=== PATIENT | male | born 1955 | race Caucasian/White ===

== ENCOUNTER 2019-10-08 00:50 | Inpatient (IN) | payer OTHER, MEDICAID, SELFPAY ==
[~2019-10-08] VITALS: Ht 185.4 cm; Wt 99.8 kg
[2019-10-08 01:05] VITALS: BP 127/61
--- NOTE | 2019-10-08 01:28 | NUR ---
Patient placed on monitor. See complete assessment.
[2019-10-08] MEDS ORDERED: NACL 0.9% 500 ML IV SCH (01:31)
--- NOTE | 2019-10-08 01:55 | NUR ---
EKG PERFORMED AT BEDSIDE
[2019-10-08 02:50] LABS: BASOPHILS # (AUTO) 0.1 K/uL (0.00-0.22); EOSINOPHILS # (AUTO) 0.1 K/uL (0-0.4); EOSINOPHILS % (AUTO) 1.5 % (0.0-4.0); HEMOGLOBIN 7.6 g/dL (12.0-18.0)
[2019-10-08 02:57] LABS: BASOPHILS % (AUTO) 1.3 % (0.0-2.0); HEMATOCRIT 22.4 % (36-52); LYMPHOCYTES # (AUTO) 1.8 K/uL (2.0-11.5); LYMPHOCYTES % (AUTO) 23.6 % (20.5-51.1); MEAN CORPUSCULAR HEMOGLOBIN 33 pg (27-31); MEAN CORPUSCULAR HGB CONC 34 g/dL (33-37); MEAN CORPUSCULAR VOLUME 97.6 fL (80-94); MONOCYTES # (AUTO) 1.7 K/uL (0.8-1.0); NEUTROPHILS # (AUTO) 3.8 K/uL (1.8-7.7); NEUTROPHILS % (AUTO) 51.2 % (42.2-75.2); PLATELET COUNT (AUTO) 83 K/uL (140-450); RED BLOOD CELL COUNT(AUTO) 2.29 MIL/uL (4.20-6.10); WHITE BLOOD COUNT (AUTO) 7.5 K/uL (4.8-10.8)
[2019-10-08 03:07] LABS: PROTHROMBIN TIME 16.2 secs (10.8-13.4)
[2019-10-08 03:11] LABS: APPEARANCE,URINE CLEAR (CLEAR); BILIRUBIN,URINE NEGATIVE (NEGATIVE); BLOOD, URINE 2+ (NEGATIVE); COLOR,URINE YELLOW (YELLOW); LEUKOCYTE ESTERASE ,URINE 1+ (NEGATIVE); NITRITE, URINE NEGATIVE (NEGATIVE); UGLUCOSE NEGATIVE (NEGATIVE)
--- NOTE | 2019-10-08 03:11 | NUR ---
Patient sitting up in bed. No distress noted. Will continue to monitor.
[2019-10-08] MEDS ORDERED: VANCOMYCIN 1,000 MG in DEXTROSE 5% 250 ML IV ONE (03:15)
[2019-10-08] MEDS ORDERED: VANCOMYCIN 1,000 MG VIAL ONE (03:19)
[2019-10-08 03:20] LABS: MONOCYTES % (AUTO) 22.4 % (1.7-9.3); RED CELL DISTRIBUTION WIDTH 21.4 % (11.6-13.7)
[2019-10-08 03:22] LABS: ALBUMIN 2.1 g/dL (3.4-5.0); ANION GAP 19.4 (8-16); CARBON DIOXIDE 20.1 mmol/L (21-32); POTASSIUM 4.5 mmol/L (3.5-5.1); TOTAL BILIRUBIN 1.7 mg/dL (0.0-1.0)
[2019-10-08 03:30] LABS: CREATININE 6.4 mg/dL (0.6-1.3)
[2019-10-08] MEDS ORDERED: LEVOFLOXACIN 500 MG/D5W PREMIX 100 ML IV ONE (03:50)
[2019-10-08] MEDS ORDERED: NACL 0.9% 2,000 ML IV ONE (04:00)
[2019-10-08 04:01] LABS: WBC,URINE 0-5 /HPF (0-5)
[2019-10-08] MEDS ORDERED: NACL 0.9% 1,000 ML IV SCH (04:03)
[2019-10-08] MEDS ORDERED: DOCUSATE SODIUM 100 MG GELCAP PO PRN (04:05)
[2019-10-08] MEDS ORDERED: ACETAMINOPHEN 325 MG TAB PO PRN (04:05)
[2019-10-08] MEDS ORDERED: MORPHINE SULFATE 2 MG/ML SYR IVP PRN (04:05)
[2019-10-08] MEDS ORDERED: ONDANSETRON 4 MG/2 ML VIAL IM/IVP PRN (04:05)
--- NOTE | 2019-10-08 04:09 | NUR ---
Patient resting in bed. Will continue to monitor. VSS.
[2019-10-08] MEDS ORDERED: DEXTROSE 50% 50 ML SYR IVP PRN (04:25)
[2019-10-08] MEDS ORDERED: HYDRAGUARD CREAM TP PRN (04:35)
[2019-10-08] MEDS ORDERED: VANCOMYCIN PER PHARMACY MC PRN (05:15)
--- NOTE | 2019-10-08 05:15 | NUR ---
Patient will be admitted to care of Dr. Dunn. Admited to [facility] Will go to room 121B. Belongings list completed. Report to NILO Burnham .
--- NOTE | 2019-10-08 05:15 | NUR ---
NEHEMIAH. FROM ER VIA GURNEY FOR ADMISSION TO MED SURGICAL UNIT. AWAKE, A/OX2-3, WITH FORGETFULNESS. RESPIRATION EVEN AND UNLABORED. IVPB ROCEPHIN INFUSING, LEFT IJ G20. TUNNEL CATH FOR DIALYSIS AT THE LEFT UPPER CHEST, WITH DRESSING, INTACT. NOTED TATTOOS IN THE CHEST AND ARMS. WITH SWELLING AND WOUND IN THE RIGHT UPPER EXTREMITY WOUND IN THE RIGHT HIP AND WOUNDS IN THE LEFT TOES. BILATERAL PITTING EDEMA 2+ ON LOWER EXTREMITIES, VS AND MRSA DONE. DENIES PAIN 0/10.
--- NOTE | 2019-10-08 05:45 | NUR ---
RESTING IN BED, WANTS TO HAVE BREAKFAST, REORIENTED TO HOSPITAL SETTING. PATIENT OCCASIONALLY WANTS TO TOUCH NURSES HAND AND SAYING INAPPROPRIATE WORDS. WILL ENDORSE TO AM SHIFT NURSE FOR ADMISSION.
[2019-10-08 06:03] LABS: BARBITURATE, URINE NEGATIVE ng/ml (NEG <=200); BENZODIAZEPINE, URINE NEGATIVE ng/mL (NEG <=200); CANNABINOID, URINE NEGATIVE ng/mL (NEG <=50); COCAINE, URINE NEGATIVE ng/mL (NEG <=300); OPIATE, URINE NEGATIVE ng/mL (NEG <=2000); PHENCYCLIDINE SCREEN,URINE NEGATIVE ng/mL (NEG <=25)
[2019-10-08 06:14] LABS: MAGNESIUM 2.2 mg/dL (1.8-2.4); PHOSPHORUS 4.6 mg/dL (2.5-4.9); THYROID STIMULATING HORMONE 3.48 uIU/mL (0.34-3.74)
[2019-10-08 06:31] LABS: CHOL/HDL RATIO 5.1 (1-4.5)
--- NOTE | 2019-10-08 07:25 | NUR ---
RECEIVED BEDSIDE REPORT FROM ASTROBIOLOGIST NURSE PHILIP FOR CONTINUITY OF CARE. PT IS AWAKE AND RESTING ON BED AT THIS TIME. PT IS AAOX3, TO NAME, DATE AND PLACE. RESPIRATION EVEN AND UNLABORED ON RA. DENIED PAIN, SOB AND DIZZINESS. NO SIGNS OF DISTRESS NOTED. IV ON LIJ 20G, CLEAN AND INTACT, NOT INFUSING AT THIS TIME. WOUND ON R TOE, R ELBOW AND HIP NOTED. PT IS BEDREST AT THIS TIME DUE TO WEAKNESS. SAFETY MEASURES IN PLACE. FALL RISK PROTOCOL IN PLACE, BED LOCK. BED ALARM ACTIVATED. BED IN LOW POSITION AND CALL LIGHT WITHIN REACH.
--- NOTE | 2019-10-08 07:45 | NUR ---
NOTIFIED DR JOHN OF LACTIC ACID 2.[address] JOHN WAS AWARE AND NO ORDER RECEIVED AT THIS TIME.
[2019-10-08 08:00] VITALS: BP 102/55
[2019-10-08] MEDS: BLOOD GLUCOSE MONITORING 1 DEV DEV FS SCH ×4 (08:05→21:57)
--- NOTE | 2019-10-08 08:06 | NUR ---
L UPPER AV CATH NOTED, SIGN POSTED FOR NO BP AND PUNCTURE ON L AR. CHECKED BG AND RECEIVED 98. COMMUNITY HEALTH REPRESENTATIVE IS ASSISTING PT AT BEDSIDE. WILL CONTINUE INFUSING IVF. SAFETY MEASURES IN PLACE. BED IN LOW POSITION AND CALL LIGHT WITHIN REACH.
[2019-10-08] MEDS ORDERED: RIFA550T PO (08:37)
[2019-10-08] MEDS ORDERED: LACT10SO1 PO (08:37)
[2019-10-08] MEDS ORDERED: PANT40EC PO (08:37)
[2019-10-08] MEDS: LACTULOSE 20 GM/30 ML UDC PO SCH (08:56)
[2019-10-08] MEDS: PANTOPRAZOLE 40 MG TABEC PO SCH (08:56)
[2019-10-08] MEDS: RIFAXIMIN 550 MG TAB PO SCH ×2 (08:56→20:31)
--- NOTE | 2019-10-08 09:02 | NUR ---
ADMINISTERED MEDS PER MD ORDER, MEDS EDUCATION PROVIDED AND PT SAID OK. PT TOLERATED PO MEDS WELL. DISCONTINUED IVF AND SALINE LOCK. APPLIED BLUE CAP TO IV. PT IS AWAKE AND RESTING ON BED. NO SIGNS OF DISTRESS NOTED. SAFETY MEASURES IN PLACE. BED LOCKED AND BED ALARM ACTIVATED.
--- NOTE | 2019-10-08 09:06 | NUR ---
RECEIVED A CALL FROM CHANTEL DENNISON AND READ OFF LAB VALUE TO DR JUÁREZ. DR JUÁREZ WAS AWARE. PER DR JUÁREZ, CALL DIALYSIS NURSE FOR HD FOR TODAY. REPEATED AND CONFIRMED ORDER WITH . WILL INPUT ORDER.
--- NOTE | 2019-10-08 09:10 | NUR ---
CALLED DIALYSIS CHERRIE RN AND SPOKE WITH CHERRIE. CHERRIE WAS AWARE THAT CHANTEL DENNISON ORDERED FOR HD. PER CHERRIE, SHE WILL START WITH ICU PATIENT THEN COME TO THE UNIT FOR HD.
--- NOTE | 2019-10-08 09:34 | NUR ---
PATIENT HAS BEEN SCREENED AND CATEGORIZED HIGH NUTRITION RISK. PATIENT WILL BE SEEN WITHIN 1-2 DAYS OF ADMISSION. 10/08/19-10/09/[address]
--- NOTE | 2019-10-08 10:17 | NUR ---
CASTING AGENT GRIER IS BY BEDSIDE AND GETTING PATIENT READY FOR HD.
--- NOTE | 2019-10-08 10:22 | NUR ---
PT ATTEMPTED TO TOUCH AND WAS KEEP SAYING HARASSING SEXUAL WORDS, "I WANT YOU TO LAY DOWN ON ME AND EAT YOUR P." ASKED PATIENT POLITELY TO BE RESPECTFUL AND NOT TOUCHING OTHERS. PT SAID, "COME ON, I WILL WAIT FOR YOU." PT IS GOING TO HD SOON AND BUILDING SUPERVISOR BY BEDSIDE.
--- NOTE | 2019-10-08 10:30 | NUR ---
FRANCHISE SALES DIRECTOR NOTE: Basic Screen: Yes High Risk DC Screen Keyser: GERTRUDIS LESTER [place] Relationship: DAUGHTER Pre-Admission Living Arrangements: Lives with Other Prior ADL Independent Current Home Health Name/Tel: N/A Current DME/02 Name/Tel: N/A Current Hospice Name/Tel: N/A Current Dialysis Name/Tel: UNABLE TO RECALL WHERE, STATED HE GOES ONCE A WEEK Healthcare Decision Maker: Patient Advance Directive No Physician Orders for Life Sustaining Treatment Form No Patient/Family Have Educational Needs No Discipline: Case Mgt/Social Svcs Tentative Discharge Plan/Destination: No Needs Identified Will require assistance post discharge: No Referred to Insurance Follow Up Representative: No Tentative Discharge Plan Summary: PATIENT IS A 63-YEAR-OLD MALE ADMITTED FOR CELLULITIS OF LOWER EXTREMITIES. PATIENT HAS PMHX OF DIABETES MELLITIS AND ESRD ON HD. PATIENT WAS ADMITTED FROM HOME WHERE HE REPORTS LIVING WITH HIS MOTHER AND DAUGHTER. PATIENT HAD GUARDED AFFECT DURING ASSESSMENT. SW MET PATIENT AT BEDSIDE TO VERIFY DEMOGRAPHICS. PER PATIENT, HE IS INDEPENDENT WITH HIS ADLS AND SOMETIMES USES A WHEELCHAIR WHEN HE IS IN PAIN. PATIENT REPORTS NO HISTORY OF SUBSTANCE ABUSE OR MENTAL HEALTH. TENTATIVE DISCHARGE PLAN IS FOR PATIENT TO RETURN HOME. NO FURTHER NEEDS IDENTIFIED. Signature: MARISSA ANSARI Date: Oct 08, 2019 Time: 10:29
--- NOTE | 2019-10-08 10:39 | NUR ---
DC PLANNIN YRS OLD KEYONNA Bowling PATIENT WAS ADMITTED FROM HOME WITH A DX OF CELLULITIS OF LOWER EXTREMITIES, HEMATOMAS. PT HAS A HX OF ESRD HEMODIALYSIS ON TTHS WITH DR MOSLEY ,DM, HEP C AND LEFT HIP WOUND. CXR SHOWED MILD PULMONARY VASCULAR CONGESTION. ULTRA SOUND OF LEFT LOWER EXT DONE NO EVIDENCE OF DVT SHOWED HEMATOMA. BLOOD CULTURE PENDING. ADMINISTERED IV ABX WITH LEVAQUIN AND AZITHROMYCIN . XRAY OF LEFT ELBOW SHOWED RIGHT OLECRANON FRACTURE. CONSULTED WITH DR DANITA SPARKS, NEPHRO AND WOUND CONSULT. DC PLAN TO GO HOME WHEN STABLE CM TO FOLLOW Addendum: 10/11/19 at 1458 by Cinthya Walls SPOKE WITH FRAN AT [facility] [phone] REGARDING PATIENTS POSSIBLE DISCHARGE TODAY. COVID TEST ARE STILL PENDING BUT IF THEY COME BACK NEGATIVE PATIENT CAN GO BACK TO [facility] TODAY OR TOMORROW BED 12-B ACCEPTING DOCTOR DR. HESTER. FRAN WILL SET UP TRANSPORTATION WITH [facility] ONCE AVAILABLE. Addendum: 10/12/19 at 1218 by Ama Marc DC PLANNING: RECEIVED A CALL FROM FRAN AT [facility] ASKING FOR THE PATIENT OUTPATIENT DIALYSIS CENTER. CALLED NADIA GALVAN SPOKE WITH THE BOX STACKER STATED HE IS HAVING DIALYSIS AT [facility] . CALLED [facility] AT [phone] NO ANSWER LEFT A MESSAGE. NOTIFIED FRAN ,STATED WILL TAKE PATIENT AND ROUGE MILLER TIME 6 PM CHUYITA CORCORAN AWARE. Addendum: 10/12/19 at 1431 by Ama Marc CM DC PLANNING: PATIENT REFUSED TO GO TO [facility] AND WANTED TO SIGN AMA. DR BO TALKED TO HIM STILL INSIST TO GO HOME AT [facility] PT STATED "I AM TIRED OF STAYING IN [place] I AM GOING HOME I ALREADY HAVE A CHAIR TIME AT [facility] ON [address] CALLED [facility] AT [address] [phone] SPOKE WITH CHUYITA MIMS PT WAS WITH THEM BEFORE WITH DR DIAS , BUT NOW HE IS ACTIVE WITH [facility], BUT IF HE WANTS TO CHANGE NEED TO FAXED THE NEW REQUEST. FAXED ALL THE PAPER WORK TO [phone] PT IS HAVING DIALYSIS TODAY AND NEXT DIALYSIS WILL BE Monday10/15/19 CM TO FOLLOW. Addendum: 10/12/19 at 1507 by Ama Marc CM DC PLANNING: CALLED [facility] SPOKE WITH FRAN NOTIFIED HER THAT PATIENT REFUSED TOGO TO [facility].
--- NOTE | 2019-10-08 11:32 | NUR ---
CHECKED BG AND RECEIVED 177, WILL ADMINISTER COVERAGE AT LUNCH. PT IS STILL IN HD. AND HE IS SAYING" COME ON NOW! LET ME EAT YOU!" ASKED PT TO BE RESPECTFUL. NO SIGNS OF ACUTE DISTRESS NOTED. SAFETY MEASURES IN PLACE.
[2019-10-08] MEDS: INSULIN LISPRO SLIDING SCALE 100 UNITS/ML VIAL SUBQ PRN (12:25)
--- NOTE | 2019-10-08 12:26 | NUR ---
PT RECEIVED LUNCH TRAY, ADMINISTERED 2 UNITS OF HUMALOG FOR BG 177. PROVIDED HEPARIN 10,000 FOR RAILWAY STATION MANAGER. PT IS STILL IN HD. NO SIGNS OF DISTRESS NOTED. SAFETY MEASURES IN PLACE.
--- NOTE | 2019-10-08 13:20 | NUR ---
PT ATTEMPTED TO GET OUT OF BED. WITH ASSIST FROM NURSING RESIDENT, POSITIONED PT BACK ON BED AND ASKED PT NOT TO GET OUT OF BED BY HIMSELF DUE TO FALL RISK. PT IS SAYING HARASSING WORDS, ASKED PT TO BE RESPECTFUL. SAFETY MEASURES IN PLACE. BED LOCKED AND BED ALARM ACTIVATED.
--- NOTE | 2019-10-08 13:53 | NUR ---
10/08/19 RD INITIAL ASSESSMENT COMPLETED PLEASE REFER TO NUTRITION ASSESSMENT UNDER CARE ACTIVITY FOR ESTIMATED NUTRITIONAL NEEDS. 1. RD RECOMMENDED RENAL, CCHO 60GM AND MECH SOFT DIET TOLERATED 2. RD RECOMMENDED NEPRO BID 3. PROVIDED NUTRITION EDUCATION ON RENAL DIET 4. RD TO FOLLOW-UP 3-5 DAYS, MODERATE RISK PEARL COLON, RD
--- NOTE | 2019-10-08 14:10 | NUR ---
PT ATTEMPTED TO GET OUT OF BED AND BED ALARM WENT OFF. PT REQUESTED FOR HIS CLOTHES AND PUTTING ON HIS CLOTHES AND SAYING, "I AM GONNA GO OUT NOW TO FISHING. I AM LEAVING." PT TRIED TO STAND UP TO PULL WHEELCHAIR. EXPLAINED THAT IT'S UNSAFE FOR PT TO GET OUT BED BY HIMSELF AND NOT SAFE TO LEAVE THE HOSPITAL AT THIS TIME DUE TO HIS CONDITION. PT INSISTED OF GOING OUT. NOTIFIED DR LUND AND DR SMITH IS TALKING TO PATIENT AT BEDSIDE. PT REFUSED TO LAY DOWN ON BED AND SITTING UP ON EDGE OF BED. INSTRUCTED PT TO USE THE CALL LIGHT AND NOT GET UP BY HIMSELF, CALL LIGHT WITHIN REACH. SAFETY MEASURES IN PLACE. BED LOCKED AND BED ALARM ACTIVATED.
--- NOTE | 2019-10-08 15:20 | NUR ---
PT PULLED OUT ID BAND, CALLED BULLET ASSEMBLY PRESS OPERATOR FOR A NEW ONE. APPLIED WRIST BAND ON PT AND INSTRUCTED NOT TO REMOVE.
[2019-10-08] MEDS ORDERED: Z-GUARD PASTE TP SCH (15:31)
[2019-10-08 16:00] VITALS: BP 100/57
--- NOTE | 2019-10-08 16:20 | NUR ---
PREFORMED WOUND CARE WITH ASSIST FROM TRAFFIC DIRECTOR, CLEANSED BUTTOCK WITH NS, PAD DRY AND APPLIED Z-GUARD AND HEART-SHAPED OPTIFOAM. CLEANSED L THIGH WITH NS, PAD DRY, APPLIED ADAPTIC DRESSING AND SECURED WITH OPTIFOAM. CLEANSED R ANKLE WITH NS, PAD DRY, APPLIED ADAPTIC DRESSING AND SECURED WITH OPTIFOAM. CLEANSED R & L FOOT AND TOES WITH NS, PAD DRY, APPLIED ADAPTIC DRESSING AND SECURED KERLIX. PT TOLERATED WELL. ASSISTED PT TO GO BACK ON BED AND POSITIONED COMFORTABLY. FOUND 7 STABLES ON HEAD, PICTURE TAKEN, AND WILL NOTIFY MD ON REGARDS FINDING. INSTRUCTED PT NOT TO GET OUT OF BED BY HIMSELF AND USE THE CALL LIGHT FOR ANY ASSISTANCE. PT SAID OK.
--- NOTE | 2019-10-08 17:50 | NUR ---
CHECKED BG AND RECEIVED 76. NO COVERAGE NEEDED. INSTRUCTED PT NOT TO GET OUT OF BED BY HIMSELF AND PT SAID OK. BED IN LOW POSITION AND CALL LIGHT WITHIN REACH. BED ALARM ACTIVATED.
[2019-10-08] MEDS: FERROUS SULFATE 325 MG TABEC PO SCH (18:16)
--- NOTE | 2019-10-08 18:17 | NUR ---
ADMINISTERED MED PER MD ORDER WITH SIP OF WATER, MED ED PROVIDED AND PT TOLERATED WELL. HOLD PT'S DINNER FOR US. WILL PROVIDE DINNER TRAY AFTER US. PT IS SITTING UP ON CHAIR. NO SIGNS OF DISTRESS NOTED. SAFETY MEASURES IN PLACE.
--- NOTE | 2019-10-08 18:30 | NUR ---
PT USED THE TABLE AND WALKING OUT OF THE ROOM. WITH ASSIST FROM WORKERS COMPENSATION CLAIMS ADJUSTER, ASSISTED PT TO GO BACK TO HIS ROOM. AND PT REFUSED TO GET BACK ON HIS BED AND REQUESTED TO SIT ON CHAIR BY BEDSIDE. INSTRUCTED PT NOT TO GET UP AND WALK BY HIMSELF. CALL LIGHT WITHIN REACH.
--- NOTE | 2019-10-08 19:02 | NUR ---
SECURITY BRING PT'S WHEELCHAIR.
--- NOTE | 2019-10-08 19:07 | NUR ---
ENDORSED PT AT BEDSIDE TO VOLUNTEER RECRUITMENT COORDINATOR NURSE PHILIP FOR CONTINUITY OF CARE. PT IS SITTING UP ON CHAIR AT BEDSIDE. NO SIGNS OF DISTRESS NOTED. CALL LIGHT WITHIN REACH. INSTRUCTED PT TO USE THE CALL LIGHT FOR ANY ASSISTANCE. PT IS IN STABLE CONDITION.
--- NOTE | 2019-10-08 19:08 | NUR ---
Patient's Plan of Care was discussed and reviewed with MOBILE SOLUTIONS ARCHITECT:
--- NOTE | 2019-10-08 19:08 | NUR ---
RECD. SITTING ON CHAIR, AWAKE, A/OX3, RESPIRATION EVEN AND UNLABORED. IV SALINE LOCK AT THE LEFT IJ G20, PATENT AND INTACT. DIALYSIS CATHETER AT THE LEFT UPPER CHEST WITH DRESSING. WITH OPEN WOUND IN THE RIGHT ELBOW. LEFT HIP WOUND COVERED WITH DRESSING, WOUND IN BILATERAL TOES COVERED WITH DRESSING DRY AND INTACT. WITH PITTING EDEMA 2+ ON BILATERAL LOWER EXTREMITIES. PLAN OF CARE DISCUSSED, VERBALIZED UNDERSTANDING. DENIES PAIN 0/10.
--- NOTE | 2019-10-08 20:00 | NUR ---
GRINDING MACHINE OPERATOR CAME TO DO US OF ABDOMEN.
--- NOTE | 2019-10-08 20:15 | NUR ---
DINNER TRAY GIVEN TO PATIENT.
--- NOTE | 2019-10-08 21:00 | NUR ---
ATE 95% OF MEAL FOR THE NIGHT.
[2019-10-08] MEDS ORDERED: MELATONIN 3 MG TAB PO PRN (21:30)
--- NOTE | 2019-10-08 23:25 | NUR ---
UNABLE TO SLEEP, MEDICATED WITH MELATONIN PER MD ORDER.
[2019-10-08 23:32] VITALS: BP 109/31
--- NOTE | 2019-10-09 | NUR ---
RESTING IN BED COMFORTABLY.
--- NOTE | 2019-10-09 03:00 | NUR ---
IN BED SLEEPING SOUNDLY, SNORING.
--- NOTE | 2019-10-09 05:00 | NUR ---
ASSISTED OUT OF BED BY TWO LACQUER POLISHER, HAD BM. BACK TO BED, SAFETY MAINTAINED.
[2019-10-09 06:13] LABS: MEAN CORPUSCULAR HEMOGLOBIN 33 pg (27-31); MEAN CORPUSCULAR HGB CONC 34 g/dL (33-37); MEAN CORPUSCULAR VOLUME 97.2 fL (80-94); PLATELET COUNT (AUTO) 84 K/uL (140-450); RED BLOOD CELL COUNT(AUTO) 2.06 MIL/uL (4.20-6.10); RED CELL DISTRIBUTION WIDTH 21.4 % (11.6-13.7); WHITE BLOOD COUNT (AUTO) 6.8 K/uL (4.8-10.8)
[2019-10-09 06:38] LABS: ANION GAP 11.9 (8-16); CARBON DIOXIDE 26.4 mmol/L (21-32); POTASSIUM 3.3 mmol/L (3.5-5.1)
[2019-10-09 06:45] LABS: CREATININE 4.8 mg/dL (0.6-1.3); HEMOGLOBIN 6.7 g/dL (12.0-18.0)
[2019-10-09 06:54] LABS: PHOSPHORUS 4.4 mg/dL (2.5-4.9)
--- NOTE | 2019-10-09 07:45 | NUR ---
RECEIVED REPORT FROM SIZE TESTER RN. PT RESTING IN BED, RESPIRATIONS EVEN AND UNLABORED, APPEARS COMFORTABLE. LEFT CHEST TUNNELLED CATH IN PLACE. STANDARD PRECAUTIONS. WOUNDS ON BL FEET, COVERED WITH DRESSING C/D/I. PENDING RING STRIKER EVALUATION PER SIZE TESTER RN. BLE SWELLING. FALL RISK PRECAUTIONS IN PLACE. ALL OTHER SAFETY PRECAUTIONS IN PLACE, WILL CONTINUE TO MONITOR.
[2019-10-09 07:55] LABS: EOSINOPHILS % (MANUAL) 4 % (0-4); LYMPHOCYTES % (MANUAL) 28 % (20-46); MONOCYTES % (MANUAL) 16 % (5-12)
[2019-10-09 08:00] VITALS: BP 101/51
[2019-10-09] MEDS: BLOOD GLUCOSE MONITORING 1 DEV DEV FS SCH ×4 (08:03→20:18)
[2019-10-09 08:10] LABS: HEPATITIS A ANTIBODY IGM Negative (Negative); HEPATITIS B CORE AB TOTAL Negative (Negative); HEPATITIS B SURFACE ANTIBODY Reactive (.); HEPATITIS B SURFACE ANTIGEN Negative (Negative)
[2019-10-09] MEDS: RIFAXIMIN 550 MG TAB PO SCH ×2 (08:35→21:04)
[2019-10-09] MEDS: ASCORBIC ACID 500 MG TAB PO SCH (08:35)
[2019-10-09] MEDS: PANTOPRAZOLE 40 MG TABEC PO SCH (08:35)
[2019-10-09] MEDS: FERROUS SULFATE 325 MG TABEC PO SCH ×2 (08:35→16:32)
[2019-10-09] MEDS: LACTULOSE 20 GM/30 ML UDC PO SCH (08:35)
--- NOTE | 2019-10-09 08:38 | NUR ---
PT AOX4, DENIES DIZZINESS AND WEAKNESS AT THIS TIME. INFORMED PT OF NEED FOR STOOL SAMPLE FOR FOBT. PT STATES HE HAD BM THIS MORNING BUT WILL CALL STAFF WHEN NEED TO HAVE BM.
--- NOTE | 2019-10-09 08:49 | NUR ---
PHYSICAL THERAPY AT BEDSIDE
--- NOTE | 2019-10-09 08:49 | NUR ---
COLLECT BM SIGN POSTED IN PT ROOM
[2019-10-09 10:35] LABS: ANION GAP 17.9 (8-16); CARBON DIOXIDE 22.9 mmol/L (21-32); POTASSIUM 3.8 mmol/L (3.5-5.1)
--- NOTE | 2019-10-09 10:46 | NUR ---
CALLED BLOOD BANK AND MADE THEM AWARE OF NEW ORDER FOR 1 U PRBC (TOTAL OF 2 UNITS).
--- NOTE | 2019-10-09 11:54 | NUR ---
FIRST UNIT PRBC READY PER BLOOD BANK. WILL ADMIN AFTER VANCO IVF.
--- NOTE | 2019-10-09 11:56 | NUR ---
ASSISTED PT ON BEDPAN FOR BM. CALL LIGHT NEXT TO PT.
[2019-10-09] MEDS ORDERED: VANCOMYCIN 1,000 MG in DEXTROSE 5% 250 ML IV SCH (12:00)
[2019-10-09 12:01] LABS: FERRITIN 630 ng/mL (30 - 400); TRANSFERRIN 113 mg/dL (200 - 370)
--- NOTE | 2019-10-09 12:12 | NUR ---
CHERRIE ( ACUTE DIALYSIS) NOTIFIED OF PT'S HD ORDERED FOR TOMORROW. MARYANN MADE AWARE.
[2019-10-09] MEDS: HYDROcodone/APAP 5/325 MG 1 TAB TAB PO PRN ×2 (12:42→20:03)
--- NOTE | 2019-10-09 12:45 | NUR ---
PT UNABLE TO HAVE BM EARLIER. ASSISTED PT AGAIN ONTO BEDPAN AT THIS TIME.
--- NOTE | 2019-10-09 13:01 | NUR ---
STOOL SAMPLE FOR FOBT WALKED TO LAB.
--- NOTE | 2019-10-09 13:44 | NUR ---
PER BLOOD BANK, CAN IT SYSTEMS ADMINISTRATOR BLOOD AFTER 2PM TODAY DUE TO THEIR OIL AND GAS SUPERINTENDENT ON LUNCH BREAK.
--- NOTE | 2019-10-09 15:00 | NUR ---
FIRST UNIT PRBC STARTED. WILL MONITOR CLOSELY.
[2019-10-09 16:00] VITALS: BP 98/53
--- NOTE | 2019-10-09 17:04 | NUR ---
NO FOBT RESULT SEEN YET. CALLED LAB WHO STATE THEY HAVE THE SAMPLE AND WILL PERFORM THE TEST SOON.
[2019-10-09 18:10] VITALS: BP 103/55
--- NOTE | 2019-10-09 19:22 | NUR ---
report to maintenance technician 2nd shift rn, transfer of care at this time. pt in stable condition.
--- NOTE | 2019-10-09 19:22 | NUR ---
endorsed to maintenance technician 3rd shift rn to start 2nd unit of PRBC
--- NOTE | 2019-10-09 19:22 | NUR ---
RECEIVE PATIENT IN STABLE CONDITION FROM AM SHIFT NURSE FOR CONTINUITY OF CARE. RESPIRATIONS EVEN, UNLABORED. SKIN WARM, DRY. MULTIPLE WOUNDS ON BODY COVERED WITH DRESSING. PATIENT STATES NO DISCOMFORT FROM SITES AT THIS TIME. IV SITE NOTED TO RIGHT ARM 22G PATENT/INTACT. NO C/O PAIN. NO S/S ACUTE DISTRESS. CALL LIGHT IN REACH. SAFETY PRECAUTIONS IN PLACE.
--- NOTE | 2019-10-09 20:00 | NUR ---
2ND UNIT OF PRBCs STARTED. WILL MONITOR PATIENT CLOSELY FOR ANY ADVERSE REACTIONS.
--- NOTE | 2019-10-09 20:03 | NUR ---
PATIENT C/O ACHING BILATERAL LOWER LEG PAIN 10/15. MEDICATED ORDERED. CALL LIGHT WITHIN REACH.
--- NOTE | 2019-10-09 21:03 | NUR ---
REASSESSED PAIN LEVEL 0/10. PATIENT IS ASLEEP. CALL LIGHT WITHIN REACH. SAFETY PRECAUTIONS IN PLACE. WILL CONTINUE TO MONITOR.
--- NOTE | 2019-10-09 22:14 | NUR ---
PATIENT IS WATCHING TV IN BED WITH NO S/S DISTRESS NOTED. INCONTINENT CARE PROVIDED. 2ND UNIT OF RBCs CONTINUES TO INFUSE WELL. CALL LIGHT IN REACH.
--- NOTE | 2019-10-09 23:04 | NUR ---
2ND UNIT OF PRBCs COMPLETED WITH NO ADVERSE REACTION NOTED. VITALS ARE STABLE. PATIENT IS AWAKE AND WATCHING TV AT THIS TIME. NO C/O PAIN. NO S/S ACUTE DISTRESS. CALL LIGHT WITHIN REACH. SAFETY PRECAUTIONS IN PLACE.
[2019-10-09 23:32] VITALS: BP 93/50
[2019-10-10] MEDS: HYDROcodone/APAP 5/325 MG 1 TAB TAB PO PRN ×3 (00:50→13:36)
--- NOTE | 2019-10-10 00:50 | NUR ---
PATIENT C/O ACHING BILATERAL LOWER LEG PAIN 10/15. MEDICATED ORDERED. REPOSITIONED PATIENT AND TURNED OFF TV AND LIGHTS FOR COMFORT. CALL LIGHT WITHIN REACH. SAFETY PRECAUTIONS IN PLACE. WILL CONTINUE TO MONITOR.
--- NOTE | 2019-10-10 01:50 | NUR ---
REASSESSED PATIENT'S PAIN LEVEL AT 0/10. PATIENT IS ASLEEP. CALL LIGHT IN REACH.
--- NOTE | 2019-10-10 03:39 | NUR ---
PATIENT CONTINUES IN STABLE CONDITION. ASLEEP. NO S/S ACUTE DISTRESS. CALL LIGHT WITHIN REACH.
--- NOTE | 2019-10-10 05:50 | NUR ---
INCONTINENT CARE RENDERED WITH SILICA MIXER OPERATOR AT BEDSIDE. SACRAL DRESSING CHANGED DUE TO SOILAGE. PATIENT IS MORE ALERT AND ORIENTED; DISCUSSING TV SHOWS AND CURRENT EVENTS WELL WITH STAFF. NO S/S DISTRESS. NO C/O PAIN. SAFETY PRECAUTIONS IN PLACE. CALL LIGHT WITHIN REACH.
[2019-10-10] MEDS: BLOOD GLUCOSE MONITORING 1 DEV DEV FS SCH ×5 (06:30→21:00)
[2019-10-10 06:50] LABS: BASOPHILS # (AUTO) 0.1 K/uL (0.00-0.22); BASOPHILS % (AUTO) 1.1 % (0.0-2.0); EOSINOPHILS # (AUTO) 0.4 K/uL (0-0.4); EOSINOPHILS % (AUTO) 5.6 % (0.0-4.0); HEMATOCRIT 22.9 % (36-52); HEMOGLOBIN 7.7 g/dL (12.0-18.0); LYMPHOCYTES # (AUTO) 2.5 K/uL (2.0-11.5); LYMPHOCYTES % (AUTO) 32.7 % (20.5-51.1); MEAN CORPUSCULAR HEMOGLOBIN 32 pg (27-31); MEAN CORPUSCULAR HGB CONC 34 g/dL (33-37); MONOCYTES # (AUTO) 1.7 K/uL (0.8-1.0); NEUTROPHILS # (AUTO) 2.9 K/uL (1.8-7.7); NEUTROPHILS % (AUTO) 37.6 % (42.2-75.2); PLATELET COUNT (AUTO) 79 K/uL (140-450); RED BLOOD CELL COUNT(AUTO) 2.39 MIL/uL (4.20-6.10); RED CELL DISTRIBUTION WIDTH 20.2 % (11.6-13.7); WHITE BLOOD COUNT (AUTO) 7.6 K/uL (4.8-10.8)
--- NOTE | 2019-10-10 07:01 | NUR ---
WILL ENDORSE TO NEXT SHIFT FOR CONTINUITY OF CARE. PATIENT IS IN STABLE CONDITION.
[2019-10-10 07:09] LABS: ANION GAP 16.7 (8-16); CARBON DIOXIDE 22.1 mmol/L (21-32); POTASSIUM 3.8 mmol/L (3.5-5.1)
--- NOTE | 2019-10-10 07:32 | NUR ---
RECEIVE PATIENT FROM FAMILY COURT COUNSELLOR RN FOR CONTINUITY OF CARE. PT IS AAOX 4 COOPERATIVE AND ABLE TO MAKE NEEDS KNOWN. RESPIRATIONS EVEN, UNLABORED. SKIN WARM, DRY. MULTIPLE WOUNDS ON BODY COVERED WITH DRESSINGS. PATIENT STATES NO DISCOMFORT FROM SITES AT THIS TIME. IV SITE NOTED TO RIGHT ARM 22G PATENT AND INTACT AND SL. NO C/O PAIN. NO S/S OF ACUTE DISTRESS. CALL LIGHT IN REACH. SAFETY PRECAUTIONS IN PLACE. DISCUSSED POC WITH T AND PT VERBALIZED UNDERSTANDING. WILL ROUND FREQUENTLY THROUGHOUT THE SHIFT.
[2019-10-10 08:00] VITALS: BP 90/46
[2019-10-10 08:01] LABS: CREATININE 5.4 mg/dL (0.6-1.3)
--- NOTE | 2019-10-10 08:31 | NUR ---
ADMINISTERED MORNING MEDS TO PT. PT TOLERATED WELL. ALL NEEDS MET. WILL CONTINUE TO ROUND FREQUENTLY ON PT.
[2019-10-10] MEDS: EPOETIN ALFA 10,000 UNITS/ML VIAL SUBQ SCH (08:36)
[2019-10-10] MEDS: FERROUS SULFATE 325 MG TABEC PO SCH (08:36)
[2019-10-10] MEDS: PANTOPRAZOLE 40 MG TABEC PO SCH (08:36)
[2019-10-10] MEDS: ASCORBIC ACID 500 MG TAB PO SCH (08:36)
[2019-10-10] MEDS: LACTULOSE 20 GM/30 ML UDC PO SCH ×2 (08:36→16:43)
[2019-10-10] MEDS: RIFAXIMIN 550 MG TAB PO SCH ×2 (08:36→22:40)
--- NOTE | 2019-10-10 11:48 | NUR ---
PT RESTING IN BED. HD IN PROGRESS. PER , PT TO HAVE 2 UNITS PACKED RBC'S INFUSED STAT. ORDER PLACED AND LAB CALLED. AWAITING BLOOD TO BE READY.
[2019-10-10] MEDS: INSULIN LISPRO SLIDING SCALE 100 UNITS/ML VIAL SUBQ PRN (12:39)
--- NOTE | 2019-10-10 13:27 | NUR ---
PT HAVING DIALYSIS AT THIS TIME WITH BLOOD TRANSFUSING. ALL NEEDS CURRENTLY MET. WILL CONTINUE TO ROUND FREQUENTLY ON PT.
[2019-10-10] MEDS ORDERED: SENNA 8.6 MG TAB PO SCH (14:45)
[2019-10-10] MEDS ORDERED: MAGNESIUM CITRATE 300 ML BTL PO SCH (15:00)
[2019-10-10 16:00] VITALS: BP 94/51
[2019-10-10] MEDS: OCTREOTIDE ACETATE 1.25 MG in NACL 0.9% 250 ML IV SCH ×2 (16:08→16:54)
--- NOTE | 2019-10-10 16:14 | NUR ---
ENDORSED PT TO NILO APPLE FOR CONTINUITY OF CARE. PT IN STABLE CONDITION.
--- NOTE | 2019-10-10 16:18 | NUR ---
RECEIVED REPORT FROM NILO SANCHEZ, PT IS STABLE, IV SITES INTACT AND PATENT, ON ROOM AIR. SAFETY MEASURES IN PLACE, CALL LIGHT WITHIN REACH. WILL CONTINUE TO MONITOR.
[2019-10-10] MEDS: POLYETHYLENE GLYCOL 17 GM/PKT PO SCH ×2 (16:53→22:40)
--- NOTE | 2019-10-10 18:00 | NUR ---
MEDICATION DUE GIVEN PT IS STABLE AND NO DISTRESS NOTED.
[2019-10-10] MEDS: MIDODRINE 5 MG TAB PO SCH (18:44)
--- NOTE | 2019-10-10 19:10 | NUR ---
ENDORSED PT TO NIGHT NURSE FOR CONTINUITY OF CARE PT IS STABLE
--- NOTE | 2019-10-10 19:10 | NUR ---
RECEIVED PT AAOX 3 TO 4 - POOR HISTORIAN , BUT CAN FOLLOW COMMANDS , AND ADDRESS HIS NEEDS , HAD HD TODAY W/ 2,000 OUTPUT. W/ LIJ TUNNELED CATH ( HD ACCESS) . IV SITE INTACT AND PATENT.,W/ SKIN TEAR IN DIFFERENT PARTS OF THE BODY - FALL RISK - BED ALARM ON - CALL LIGHT WITHIN REACH , REMINDS THE USE OF CALL LIGHT WHENEVER HE NEEDS HELP / ASSISTANCE - NEEDS RE INFORCEMENT. ON CLEAR LIQ. DIET - NPO POST MN - FOR EGD SANDI. - CONSENT SIGNED.SAFETY MEASURES IN PLACE . PLAN OF CARE DISCUSSED VERBALIZE FAIR UNDERSTANDING. WILL CONT. TO MONITOR.
[2019-10-10] MEDS ORDERED: VANCOMYCIN 1,000 MG in DEXTROSE 5% 250 ML IV SCH (21:00)
[2019-10-10] MEDS ORDERED: LEVOFLOXACIN 250 MG/D5 PREMIX 50 ML IV SCH (21:00)
--- NOTE | 2019-10-10 21:00 | NUR ---
REFER TO CHARGE NURSE , PHARMACIST ABOUT THE ON GOING SANDOSTATIN TIV - FREQ. AND INTERVALS - WILL WAIT FURTHER ORDER.
[2019-10-10] MEDS ORDERED: OCTREOTIDE ACETATE 1000 MCG/5 ML VIAL ONE (22:13)
--- NOTE | 2019-10-10 22:25 | NUR ---
PATIENT COMPLAINED OF LOWER LEG PAIN /. PRN PAIN MED ADMINISTER PER ORDER. WILL CONTINUE TO MONITOR.
--- NOTE | 2019-10-10 22:30 | NUR ---
SWAB PATIENT FOR CORONAVIRUS.
[2019-10-10] MEDS ORDERED: VANCOMYCIN 1,000 MG VIAL ONE (22:35)
--- NOTE | 2019-10-10 23:20 | NUR ---
RECEIVED REPORT FROM TARIQ FOR CONTINUITY OF CARE. PATIENT IS AWAKE, ALERT, AND COOPERATIVE. RESPIRATION EVEN UNLABORED ON ROOM AIR. NO DISTRESS NOTED. SKIN IS WARM AND DRY. IV PATENT AND INTACT. LEFT AV FISTULA NOTED. CELLULITIS OF LOWER EXTREMITIES NOTED. PLAN OF CARE WAS DISCUSSED. ALL SAFETY MEASURES IN PLACE. BED IS AT LOW POSITION. CALL LIGHT WITHIN REACH AND VERBALIZES ITS USE. WILL CONTINUE TO MONITOR.
--- NOTE | 2019-10-10 23:20 | NUR ---
ENDORSED TO NURSE CADEN FOR CONTINUITY OF CARE - PT - STABLE .
--- NOTE | 2019-10-10 23:26 | NUR ---
ADMINISTERED VANCO IV PER ORDER. WILL CONTINUE TO MONITOR
[2019-10-11] VITALS: BP 109/67
--- NOTE | 2019-10-11 | NUR ---
VITALS WERE TAKEN. PATIENT IN STABLE CONDITION. NO DISTRESS NOTED. WILL CONTINUE TO MONITOR.
[2019-10-11] MEDS: OCTREOTIDE ACETATE 1.25 MG in NACL 0.9% 250 ML IV SCH ×4 (00:04→10:44)
--- NOTE | 2019-10-11 00:58 | NUR ---
PATIENT REFUSED WOUND CARE. PER PATIENT HE WANTS TO SLEEP AND NOT BE BOTHERED. EXPLAINED THE RISK AND BENEFITS STILL REFUSED X2. WILL OFFER WOUND CARE AGAIN TOMORROW MORNING. WILL CONTINUE TO MONITOR.
--- NOTE | 2019-10-11 02:31 | NUR ---
CHECKED PATIENT. PATIENT SLEEPING RESPIRATION EVEN UNLABORED ON ROOM AIR. NO DISTRESS NOTED. WILL CONTINUE TO MONITOR.
--- NOTE | 2019-10-11 04:00 | NUR ---
VITALS WERE TAKEN. PATIENT IN STABLE CONDITION. NO DISTRESS NOTED. WILL CONTINUE TO MONITOR.
--- NOTE | 2019-10-11 05:15 | NUR ---
ADMINISTERED GOLYTELY. EDUCATED THE PATIENT REGARDING THE MEDICATION AND THE PURPOSE OF IT. PATIENT VERBALIZED UNDERSTANDING. WILL CONTINUE TO MONITOR.
[2019-10-11] MEDS: HYDROcodone/APAP 5/325 MG 1 TAB TAB PO PRN (05:35)
--- NOTE | 2019-10-11 05:35 | NUR ---
PATIENT COMPLAINED OF LEG PAIN 6/. PRN PAIN MED ADMINISTERED PER ORDER. WILL CONTINUE TO MONITOR.
[2019-10-11] MEDS ORDERED: BOWEL EVACUANT DRINK 4,000 ML PDS PO SCH (06:00)
[2019-10-11] MEDS: MIDODRINE 5 MG TAB PO SCH ×3 (06:21→18:04)
[2019-10-11] MEDS: BLOOD GLUCOSE MONITORING 1 DEV DEV FS SCH ×4 (06:34→21:00)
[2019-10-11 06:38] LABS: BASOPHILS # (AUTO) 0.1 K/uL (0.00-0.22); BASOPHILS % (AUTO) 1.6 % (0.0-2.0); EOSINOPHILS # (AUTO) 0.3 K/uL (0-0.4); HEMATOCRIT 28.1 % (36-52); HEMOGLOBIN 9.6 g/dL (12.0-18.0); LYMPHOCYTES # (AUTO) 2.5 K/uL (2.0-11.5); LYMPHOCYTES % (AUTO) 35.3 % (20.5-51.1); MEAN CORPUSCULAR HEMOGLOBIN 32 pg (27-31); MEAN CORPUSCULAR HGB CONC 34 g/dL (33-37); MEAN CORPUSCULAR VOLUME 94.1 fL (80-94); MONOCYTES # (AUTO) 1.7 K/uL (0.8-1.0); NEUTROPHILS # (AUTO) 2.3 K/uL (1.8-7.7); NEUTROPHILS % (AUTO) 33.1 % (42.2-75.2); PLATELET COUNT (AUTO) 102 K/uL (140-450); RED BLOOD CELL COUNT(AUTO) 2.98 MIL/uL (4.20-6.10); RED CELL DISTRIBUTION WIDTH 19.5 % (11.6-13.7)
--- NOTE | 2019-10-11 07:11 | NUR ---
ENDORSED PATIENT TO DAY SHIFT NURSE. PATIENT IN STABLE CONDITION.
--- NOTE | 2019-10-11 07:13 | NUR ---
RECEIVED REPORT FROM NIGHT NURSE PT IS AAOX4, ON ROOM AIR, IV SITES INTACT AND PATENT ON RIGHT FA G 22. HAD 3X BOWEL MOVEMENT THIS MORNING, NPO EXCEPT MEDICATIONS. SAFETY MEASURES IN PLACE, CALL LIGHT WITHIN REACH. WILL CONTINUE TO MONITOR.
[2019-10-11 07:47] LABS: ANION GAP 14.7 (8-16); CARBON DIOXIDE 24.4 mmol/L (21-32); POTASSIUM 4.1 mmol/L (3.5-5.1)
[2019-10-11 07:52] LABS: MAGNESIUM 2.2 mg/dL (1.8-2.4); PHOSPHORUS 4.4 mg/dL (2.5-4.9)
[2019-10-11 08:00] VITALS: BP 99/60
--- NOTE | 2019-10-11 08:16 | NUR ---
RECEIVED CRITICAL LAB VALUE FROM CLEMENT, CREATININE 4.4 . REPORTED TO MD AND NO CHANGES IN ORDERS.
[2019-10-11 08:17] LABS: CREATININE 4.4 mg/dL (0.6-1.3)
[2019-10-11] MEDS: ASCORBIC ACID 500 MG TAB PO SCH (08:42)
[2019-10-11] MEDS: LACTULOSE 20 GM/30 ML UDC PO SCH ×3 (08:42→20:34)
[2019-10-11] MEDS: POLYETHYLENE GLYCOL 17 GM/PKT PO SCH (08:43)
[2019-10-11] MEDS: RIFAXIMIN 550 MG TAB PO SCH (08:43)
--- NOTE | 2019-10-11 08:57 | NUR ---
MEDICATIONS DUE GIVEN, PT IS SLEEPING AND NO DISTRESS NOTED, PT IS COOPERATIVE AND ABLE TO REST WELL, IV SITES INTACT AND PATENT, DENIES PAIN. SAFETY MEASURES IN PLACE AND CALL LIGHT WITHIN REACH. WILL; CONTINUE TO MONITOR.
[2019-10-11] MEDS ORDERED: PANTOPRAZOLE 40 MG INJ VIAL IVP SCH (09:00)
--- NOTE | 2019-10-11 11:16 | NUR ---
BLOOD SUGAR MONITORING DONE, 99 MG/DL NO INSULIN COVERAGE. ASSISTED PT TO THE BATHROOM, PT IS STABLE SAFETY MEASURES IN PLACE, CALL LIGHT WITHIN REACH, WILL CONTINUE TO MONITOR.
--- NOTE | 2019-10-11 11:26 | NUR ---
PT'S [employer] MA[employer] LEONOR SIMMS WAS HERE AT THIS TIME TO CHECK ON THE PT AND SCHEDULE A HEMODIALYSIS TOMORROW 10/12/19 AT 1133 AM. WILL CONTINUE TO MONITOR.
[2019-10-11] MEDS ORDERED: fentaNYL 0.05 MG/ML VIAL ONE (11:44)
[2019-10-11] MEDS ORDERED: diphenhydrAMINE 50 MG/ML VIAL ONE (11:44)
[2019-10-11] MEDS ORDERED: MIDAZOLAM 2 MG/2 ML VIAL ONE (11:45)
--- NOTE | 2019-10-11 12:00 | NUR ---
PT WAS OUT IN HIS ROOM AT THIS TIME FOR EGD AND COLONOSCOPY PROCEDURE VIS BRANDON. SAFETY MEASURES IN PLACE AND WILL CONTINUE TO MONITOR.
[2019-10-11] MEDS ORDERED: MIDAZOLAM 2 MG/2 ML VIAL IVP ONE (13:05)
[2019-10-11] MEDS ORDERED: fentaNYL 0.05 MG/ML VIAL IVP ONE (13:05)
--- NOTE | 2019-10-11 13:25 | NUR ---
PT BACK TO HIS ROOM AFTER EGD WITH BIOPSY FOR H PYLORI VERSED AND FENTANYL GIVEN DURING THE PROCEDURE. FOOD IN STOMACH, NO VARICES AND POOR COLON PREP. VITAL SIGN TAKEN BP 98/59 [place] 64. PT IS STABLE AND SAFETY MEASURES IN PLACE CALL LIGHT WITHIN REACH. WILL CONTINUE TO MONITOR
--- NOTE | 2019-10-11 13:30 | NUR ---
GAVE PT 1 DOSE OF LACTULOSE 20GMS A T THIS TIME.
--- NOTE | 2019-10-11 15:07 | NUR ---
PT MEDICATION SANDOSTATIN 1.25MGIN SODUIM CHLORIDE 0.9% 250 ML OCTREOTIDE ACETATE 1.25MG IN NACL 0.9% 250 ML CONSUMED AT THIS TIME. PT IS STABLE.
[2019-10-11 16:00] VITALS: BP 110/63
--- NOTE | 2019-10-11 18:17 | NUR ---
MEDICATIONS DUE GIVEN PT IS EATING AND NO DISTRESS NOTED, DENIES PAIN SAFETY MEASURES IN PLACE, CALL LIGHT WITHIN REACH. WILL CONTINUE TO MONITOR.
--- NOTE | 2019-10-11 19:05 | NUR ---
ENDORSED PT TO NIGHT NURSE FOR CONTINUITY OF CARE, PT IS STABLE.
--- NOTE | 2019-10-11 19:13 | NUR ---
RECEIVED REPORT FROM ZECHARIAH CORCORAN DAYSHIFT NURSE AT BEDSIDE FOR CONTINUITY OF CARE, PT IN STABLE CONDITION.
--- NOTE | 2019-10-11 20:35 | NUR ---
PT IS AOX4 WITH IV SITE INTACT ASYMPTOMATIC ON R F/A 20G SALINE LOCKED AT THIS TIME. PT HAS HEMATOMA TO LEFT LOWER LEG AND RIGHT ELBOW. DRESSINGS FOR SKIN TEARS INTACT. PT HAD X1 LOOSE BM ELBOW HS FX. V/S FOLLOWS: T 97.6 P 73 R 20 ON ROOM AIR. B/P 137/75. PT C/O MODERATE PAIN AND IS ASKING FOR PRN NORCO. SPOKE WITH RESIDENT MD TAN REGARDING PT REQUEST DUE TO NORCO BEING DISCONTINUED. HE ADVISED WE TRY TYLENOL FOR PAIN RELIEF FIRST. PT AGREEABLE BUT DID NOT BELIEVE TYLENOL WILL RELIEF HIS PAIN. ALSO MENTIONED TO MD TAN THAT PT IS HAVING WATERY STOOLS ON THE LACTULOSE, HE SAID TO GIVEN TO PT DUE TO SPECIALIST WANTED PT TO CONTINUE ON THIS MEDICATION TO KEEP BOWELS MOVING. PT WAS ALSO AGREEABLE TO CONTINUE TAKING THE LACTULOSE. PT NOT FOLLOWING FLUID RESTRICTIONS EVEN AFTER CONSULT,D MADE AWARE.
--- NOTE | 2019-10-11 21:00 | NUR ---
PT WAS GIVEN DUE MEDS OF LACTULOSE, PURPOSES, RISKS AND BENEFITS FOR MEDICATION PROVIDED AT BEDSIDE. PT FINGERSTICK ALSO IS 210. PT DOES NOT HAVE A SLIDING SCALE, WILL SPEAK WITH RESIDENT MD JOHN REGARDING ORDERING A S/S. SOME POSITIVE RESULT OF PAIN RELIEF. PT WAS ASSISTED WITH BEDPAN AND HAD A SMALL LIQUID BM OF ABOUT 300MLS. S/S ORDERED, PT GIVEN 4 UNITS OF HUMALOG COVERAGE PER ORDERED S/S. ALL REQUESTED NEEDS ATTENDED BY STAFF.
--- NOTE | 2019-10-11 22:00 | NUR ---
PT IN BED ASLEEP NO S/S OF PAIN OR DISTRESS NOTED.
[2019-10-11] MEDS ORDERED: INSULIN LISPRO SLIDING SCALE 100 UNITS/ML VIAL SUBQ PRN (23:00)
[2019-10-11] MEDS ORDERED: DEXTROSE 50% 50 ML SYR IVP PRN (23:00)
[2019-10-12] VITALS: BP 111/59
--- NOTE | 2019-10-12 00:30 | NUR ---
PT IN BED SLEEPING BUT AROUSABLE TO NAME V/S FOLLOWS: T 98.2 P 74 R 16 B/P 111/59 02 98% ON 5 LITERS VIA /N/C.
--- NOTE | 2019-10-12 02:00 | NUR ---
PT CALLED AND ASKED FOR ASSISTANCE WITH THER RESTROOM. ALL REQUESTED NEEDS ATTENDED BY STAFF. ALL FALLS PRECAUTIONS IN PLACE.
[2019-10-12] MEDS: traMADol 50 MG TAB PO PRN ×2 (03:42→13:05)
--- NOTE | 2019-10-12 04:00 | NUR ---
PT IN BED ALL REQUESTS ATTENDED BY STAFF. SPOKE WITH MD JOHN WHO ORDERED AN ULTRAM PO/PRN FOR PAIN. PT WAS GIVEN REQUESTED PRN MEDICATION FOR MODERATE PAIN IN LLE.
--- NOTE | 2019-10-12 04:30 | NUR ---
PT IN BED POSITIVE EFFECT OF ULTRAM V/S FOLLOWS: T 98.4 P 71 R 20 B/P 106/65 02 95%
[2019-10-12] MEDS: MIDODRINE 5 MG TAB PO SCH ×2 (05:33→13:15)
[2019-10-12] MEDS: BLOOD GLUCOSE MONITORING 1 DEV DEV FS SCH ×2 (05:48→11:31)
--- NOTE | 2019-10-12 06:00 | NUR ---
MIDODRINE GIVEN ORDERED WELL F/S 140 NO HUMALOG COVERAGE NEEDED. ALL REQUESTED ATTENDED BY STAFF, ALL FALLS PRECAUTIONS IN PLACE
[2019-10-12 07:04] LABS: BASOPHILS # (AUTO) 0.2 K/uL (0.00-0.22); EOSINOPHILS # (AUTO) 0.4 K/uL (0-0.4); EOSINOPHILS % (AUTO) 5.6 % (0.0-4.0); HEMATOCRIT 27.8 % (36-52); HEMOGLOBIN 9.4 g/dL (12.0-18.0); LYMPHOCYTES # (AUTO) 1.8 K/uL (2.0-11.5); LYMPHOCYTES % (AUTO) 27.3 % (20.5-51.1); MEAN CORPUSCULAR HEMOGLOBIN 33 pg (27-31); MEAN CORPUSCULAR HGB CONC 34 g/dL (33-37); MEAN CORPUSCULAR VOLUME 96.4 fL (80-94); MONOCYTES # (AUTO) 1.4 K/uL (0.8-1.0); MONOCYTES % (AUTO) 21.7 % (1.7-9.3); NEUTROPHILS # (AUTO) 2.8 K/uL (1.8-7.7); NEUTROPHILS % (AUTO) 42.4 % (42.2-75.2); PLATELET COUNT (AUTO) 106 K/uL (140-450); RED BLOOD CELL COUNT(AUTO) 2.89 MIL/uL (4.20-6.10); WHITE BLOOD COUNT (AUTO) 6.5 K/uL (4.8-10.8)
--- NOTE | 2019-10-12 07:05 | NUR ---
RECEIVED REPORT FROM NIGHT NURSE FOR CONTINUITY OF CARE, PT IS STABLE, AAOX4, PT IS STABLE, NO SIGNS OF DISTRESS NOTED, RESPIRATIONS ARE EVEN AND UNLABORED ON ROOM AIR, PT HAS LEFT CHEST TUNNEL AV, PT HAS RIGHT FA 22G SALINE LOCK, PT ON RENAL DIET, PT HAS SKIN TEARS TO LEFT ELBOW, RIGHT HOP, SACRAL REDNESS, RIGHT KNEE, MANDY ON BACK OF HEAD, BED IN LOW POSITIONS, SAFETY MEASURES IN PLACE, ALL NEEDS MET AT THIS TIME, CALL LIGHT WITHIN REACH, WILL CONTINUE TO MONITOR.
[2019-10-12 07:13] LABS: ANION GAP 15.8 (8-16); CARBON DIOXIDE 22.2 mmol/L (21-32)
[2019-10-12 07:31] LABS: CREATININE 5.3 mg/dL (0.6-1.3)
[2019-10-12 07:42] LABS: MAGNESIUM 2.5 mg/dL (1.8-2.4)
[2019-10-12 08:00] VITALS: BP 112/68
[2019-10-12] MEDS: LACTULOSE 20 GM/30 ML UDC PO SCH (08:28)
[2019-10-12] MEDS: ASCORBIC ACID 500 MG TAB PO SCH (08:28)
[2019-10-12] MEDS: EPOETIN ALFA 10,000 UNITS/ML VIAL SUBQ SCH (08:29)
--- NOTE | 2019-10-12 08:36 | NUR ---
ADMINISTERED SCHEDULED MEDICATION, MEDICATION EDUCATION GIVEN, PT VERBALIZED UNDERSTANDING, PT TOLERATED MEDICATION WELL. REMOVED 7 MANDY PER ORDER, PER DR GRIFFIN, PT TOLERATED WELL, PT IS STABLE, NO SIGNS OF DISTRESS NOTED, RESPIRATIONS ARE EVEN AND UNLABORED ON ROOM AIR, CALL LIGHT WITHIN REACH.
--- NOTE | 2019-10-12 11:31 | NUR ---
PT REFUSING BLOOD GLUCOSE CHECK, PT EDUCATION PROVIDED, PT STILL REFUSED, INFORMED PT THAT AFTER DIALYSIS HE WILL BE TRANSFERRED TO [facility]. PT STATED "GOOD".
--- NOTE | 2019-10-12 11:46 | NUR ---
SPOKE WITH FRAN FROM [facility]([phone]) NOTIFIED REGARDING PT'S HD TODAY AT NOON TIME. PER FRAN, [employer] WILL PET TRAINING INSTRUCTOR PT AT 6PM TODAY AFTER HD. TAJ ASSIGNED ALEJANDRA MERCER.
--- NOTE | 2019-10-12 12:20 | NUR ---
PT STARTED DIALYSIS, PT STABLE, DIALYSIS NURSE AT BEDSIDE, ALL NEEDS MET, WILL CONTINUE TO MONITOR.
--- NOTE | 2019-10-12 12:21 | NUR ---
PT'S 2ND COVID SWAB IS STILL PENDING. ACCORDING TO FRAN FROM [facility]([phone]), THEY CAN TAKE PT EVEN WITH ONE NEGATIVE COVID RESULT.
--- NOTE | 2019-10-12 13:50 | NUR ---
ADMINISTERED SCHEDULED MEDICATION, MEDICATION EDUCATION GIVEN, PT TOLERATED WELL, PT IS STABLE, PT ON DIALYSIS, CALL LIGHT WITHIN REACH.
--- NOTE | 2019-10-12 14:08 | NUR ---
CALLED DONNELL WATT AND GAVE REPORT TO LOAN, PT WILL BE PICKED UP FROM [facility] AT 1800.
--- NOTE | 2019-10-12 15:08 | NUR ---
PT IN BED ASLEEP, NO SIGNS OF DISTRESS NOTED, RESPIRATIONS ARE EVEN AND UNLABORED ON ROOM AIR, PT IS STABLE, DIALYSIS NURSE AT BEDSIDE, CALL LIGHT WITHIN REACH.
--- NOTE | 2019-10-12 15:29 | NUR ---
DIALYSIS FINISHED, PT HAD OUTPUT OF 2.5 L, PT BP 99/60, PT IS STABLE, NO SIGNS OF DISTRESS NOTED, RESPIRATIONS ARE EVEN AND UNLABORED ON ROOM AIR, CALL LIGHT WITHIN REACH.
--- NOTE | 2019-10-12 16:17 | NUR ---
PT LEFT AMA, PT SIGNED AMA FORM, PT INFORMED AT 1200 HE WOULD BE TRANSFERRED TO [facility], PT STATED HE DID NOT WANT TO GO [place] AND WAS SICK AND TIRED OF [place], PT STATED HE WANTED TO BE TRANSFERRED TO THE [facility], PT HAS A ROOM AT [facility] AND REPORT HAD ALREADY BEEN GIVEN, PT SPOKE WITH DR ECHEVARRIA AND EXPLAINED HE DID NOT WANT A SNF IN [place], DR ECHEVARRIA EXPLAINED THE SITUATION AND RISK AND BENEFITS OF LEAVING AMA, PT ADAMANT HE WAS LEAVING AMA HE HAS THE RIGHT AND DID NOT WANT TO GO TO [facility] IN [place], PT WAS INFORMED TO FINISH DIALYSIS AND THEN HE WOULD TALK TO THE DOCTOR. DIALYSIS FINISHED AT 1529, PT STATED HE WANTED TO LEAVE AMA AND WANTED HIS WHEELCHAIR. PT RECEIVED ALL BELONGING, PT WHEELED TO THE FRONT LOBBY BY [employer]. PT LEFT AMA AND HOME INSTRUCTIONS FOR COVID GIVEN.
== END 2019-10-12 16:20 | disposition left against medical advice (07) | DRG 291 ==
LOC: MED 00:50 → MTU 04:06
PROVIDERS: ADMIT General Practice; ATTEND General Practice
PROC: 5A1D70Z Performance of Urinary Filtration, Intermittent, Less than 6 Hours Per Day (ICD-10-PCS; 2019-10-08)
PROC: 30233N1 Transfusion of Nonautologous Red Blood Cells into Peripheral Vein, Percutaneous Approach (ICD-10-PCS; 2019-10-09)
PROC: 5A1D70Z Performance of Urinary Filtration, Intermittent, Less than 6 Hours Per Day (ICD-10-PCS; 2019-10-10)
PROC: 0DB68ZX Excision of Stomach, Via Natural or Artificial Opening Endoscopic, Diagnostic (ICD-10-PCS; principal; 2019-10-11 11:10)
PROC: 0DJD8ZZ Inspection of Lower Intestinal Tract, Via Natural or Artificial Opening Endoscopic (ICD-10-PCS; 2019-10-11 11:10)
PROC: 5A1D70Z Performance of Urinary Filtration, Intermittent, Less than 6 Hours Per Day (ICD-10-PCS; 2019-10-12)
DX: I13.2 Hypertensive heart and chronic kidney disease with heart failure and with stage 5 chronic kidney disease, or end stage renal disease (principal); N17.0 Acute kidney failure with tubular necrosis; E43 Unspecified severe protein-calorie malnutrition; I50.43 Acute on chronic combined systolic (congestive) and diastolic (congestive) heart failure; N18.6 End stage renal disease; L03.116 Cellulitis of left lower limb; E87.2 Acidosis; D68.59 Other primary thrombophilia; D68.4 Acquired coagulation factor deficiency; R18.8 Other ascites; K76.6 Portal hypertension; L03.115 Cellulitis of right lower limb; B19.20 Unspecified viral hepatitis C without hepatic coma; D63.8 Anemia in other chronic diseases classified elsewhere; E11.22 Type 2 diabetes mellitus with diabetic chronic kidney disease; B35.1 Tinea unguium; S70.912A Unspecified superficial injury of left hip, initial encounter; D69.59 Other secondary thrombocytopenia; K80.20 Calculus of gallbladder without cholecystitis without obstruction; Z53.29 Procedure and treatment not carried out because of patient's decision for other reasons; K74.60 Unspecified cirrhosis of liver; S52.021A Displaced fracture of olecranon process without intraarticular extension of right ulna, initial encounter for closed fracture; K21.9 Gastro-esophageal reflux disease without esophagitis; D50.0 Iron deficiency anemia secondary to blood loss (chronic); E11.21 Type 2 diabetes mellitus with diabetic nephropathy; S50.01XA Contusion of right elbow, initial encounter; X58.XXXA Exposure to other specified factors, initial encounter; K44.9 Diaphragmatic hernia without obstruction or gangrene; K31.89 Other diseases of stomach and duodenum; Z68.29 Body mass index [BMI] 29.0-29.9, adult; Z99.2 Dependence on renal dialysis; Z91.19 Patient's noncompliance with other medical treatment and regimen; Y93.89 Activity, other specified; Y92.89 Other specified places as the place of occurrence of the external cause; Y99.8 Other external cause status; Z99.3 Dependence on wheelchair; Z20.828 Contact with and (suspected) exposure to other viral communicable diseases
CPT/HCPCS: 36415; 71045; 73080; 76705; 80048; 80053; 80202; 80305; 81001; 82140; 82272; 82607; 82728; 82746; 82948; 83036; 83540; 83605; 83735; 83880; 84100; 84443; 84484; 85025; 85045; 85610; 85730; 86677; 86704; 86706; 86708; 86709; 86803; 86886; 86900; 86901; 86920; 87040; 87081; 87086; 87340; 90935; 93005; 93971; 96365; 97110; 97112; 97116; 97161-GP; 97530; 99291; C9113; J0885; J1200; J1644; J1815; J1956; J2250; J2270; J2354; J3010; J3370; J7030; J7060; P9016; Q0092; U0003-CS